=== PATIENT | male | born 2000 | race Caucasian/White ===

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

== ENCOUNTER 2022-11-12 19:17 | Emergency (ER) | payer OTHER ==
[~2022-11-12] VITALS: Ht 182.8 cm; Wt 115.7 kg
[2022-11-12 19:43] VITALS: BP 158/81
[2022-11-12] MEDS ORDERED: CEPHALEXIN500 M1 PO (19:57)
[2022-11-12] MEDS ORDERED: SEPTDS PO (19:57)
== END 2022-11-12 20:16 | disposition home or self-care (01) ==
LOC: ED 19:17
DX: L03.115 Cellulitis of right lower limb (principal); Z98.890 Other specified postprocedural states

== ENCOUNTER 2023-05-18 | Emergency (ER) | payer OTHER ==
[~2023-05-18] VITALS: Ht 177.8 cm; Wt 115.7 kg
[~2023-05-18] MED LIST changes: +SEPTDS PO
[2023-05-18 00:08] VITALS: BP 128/56
== END 2023-05-18 00:32 | disposition home or self-care (01) ==
LOC: ED
DX: S00.12XA Contusion of left eyelid and periocular area, initial encounter (principal); F90.9 Attention-deficit hyperactivity disorder, unspecified type; Z98.890 Other specified postprocedural states; W50.0XXA Accidental hit or strike by another person, initial encounter; Y93.89 Activity, other specified; Y92.009 Unspecified place in unspecified non-institutional (private) residence as the place of occurrence of the external cause; Y99.8 Other external cause status

== ENCOUNTER → 2023-06-06 | Outpatient (CLI) | payer OTHER | END | disposition home or self-care (01) | LOC: LAB 09:01 | PROVIDERS: ATTEND Family Medicine | DX: R79.89 Other specified abnormal findings of blood chemistry (principal); R53.83 Other fatigue ==

== ENCOUNTER 2023-08-22 20:55 | Emergency (ER) | payer OTHER ==
[~2023-08-22] VITALS: Ht 175.2 cm; Wt 111.1 kg
[2023-08-22 21:04] VITALS: BP 138/72
[2023-08-22 21:35] LABS: BASO % 0.3 % (0.0-1.0); EOS # 0.4 10*3/uL (0.0-0.4); EOS % 3.5 % (1.0-4.0); HEMATOCRIT 48.5 % (42.0-52.0); LYMPH # 4.7 10*3/uL (1.3-4.4); LYMPH % 44.7 % (27.0-41.0); MEAN CELL VOLUME 89.3 fl (80.0-94.0); MEAN CORPUSCULAR HGB 29.3 pg (27.0-31.0); MEAN CORPUSCULAR HGB CONC 32.8 g/dl (33.0-37.0); MEAN PLATELET VOLUME 10.1 fl (9.6-12.3); MONO # 0.6 10*3/uL (0.1-1.0); MONO % 5.2 % (3.0-9.0); NEUT # 4.9 10*3/uL (2.3-7.9); PLATELET COUNT AUTOMATED 248 10*3/uL (130-400); RED BLOOD COUNT 5.43 10*6/uL (4.50-5.90); RED CELL DISTRI WIDTH 12.6 % (0-14.5); WHITE BLOOD COUNT 10.6 10*3/uL (4.8-10.8)
[2023-08-22 21:55] LABS: BILIRUBIN Negative (Negative); BLOOD Negative (Negative); CLARITY Clear (Clear); COLOR Yellow (Yellow); GLUCOSE Negative (Negative); KETONE Negative (Negative); LEUKO ESTERASE Negative (Negative); NITRITE Negative (Negative); PH 6.5 (4.5-8.0)
[2023-08-22 22:06] LABS: ALKALINE PHOSPHATASE 78 U/L (46-116); BUN 10 mg/dl (9-23); CHLORIDE 108 mmol/L (98-107); POTASSIUM 3.9 mmol/L (3.4-5.1); SGPT/ALT 42 U/L (5-49); TOTAL PROTEIN 7.1 gm/dL (6.0-8.0)
[2023-08-22 22:31] LABS: WBC 0-2 wbc/hpf (0-5)
== END 2023-08-23 00:12 | disposition home or self-care (01) ==
LOC: ED 20:55
PROVIDERS: Nurse Practitioner Family
DX: S30.1XXA Contusion of abdominal wall, initial encounter (principal); Z98.890 Other specified postprocedural states; X58.XXXA Exposure to other specified factors, initial encounter; Y93.89 Activity, other specified; Y92.89 Other specified places as the place of occurrence of the external cause; Y99.8 Other external cause status

== ENCOUNTER 2024-02-01 22:11 | Emergency (ER) | payer SELFPAY ==
[~2024-02-01] VITALS: Ht 172.7 cm; Wt 125.2 kg
[2024-02-01 22:13] VITALS: BP 159/101
[2024-02-01] MEDS ORDERED: Tdap Vaccine 0.5 ML SYR (Adult Vaccine) IM ONE (22:45)
[2024-02-01] MEDS ORDERED: Acetaminophen/Hydrocodone 5 MG/325 MG TABLET PO ONE (22:50)
== END 2024-02-02 02:21 | disposition short-term general hospital (02) ==
LOC: ED 22:11
DX: T15.11XA Foreign body in conjunctival sac, right eye, initial encounter (principal); F90.9 Attention-deficit hyperactivity disorder, unspecified type; Z98.890 Other specified postprocedural states; W44.8XXA Other foreign body entering into or through a natural orifice, initial encounter; Y93.89 Activity, other specified; Y92.89 Other specified places as the place of occurrence of the external cause; Y99.8 Other external cause status

== ENCOUNTER 2024-07-08 13:55 | Emergency (ER) | payer SELFPAY ==
[~2024-07-08] VITALS: Ht 190.5 cm; Wt 133.8 kg
[2024-07-08 14:24] VITALS: BP 159/74
[2024-07-08] MEDS ORDERED: Lidocaine Hydrochloride 2 ML AMP SC ONE (14:45)
== END 2024-07-08 15:19 | disposition home or self-care (01) ==
LOC: ED 13:55
DX: S91.111A Laceration without foreign body of right great toe without damage to nail, initial encounter (principal); W26.8XXA Contact with other sharp object(s), not elsewhere classified, initial encounter; Y93.89 Activity, other specified; Y92.89 Other specified places as the place of occurrence of the external cause; Y99.8 Other external cause status

== ENCOUNTER 2024-07-14 13:26 | Emergency (ER) | payer SELFPAY ==
[2024-07-14 14:01] VITALS: BP 134/78
== END 2024-07-14 14:17 | disposition home or self-care (01) ==
LOC: ED 13:26
DX: S91.111D Laceration without foreign body of right great toe without damage to nail, subsequent encounter (principal); F90.9 Attention-deficit hyperactivity disorder, unspecified type; Z98.890 Other specified postprocedural states; X58.XXXD Exposure to other specified factors, subsequent encounter

== ENCOUNTER 2024-10-17 08:32 | Emergency (ER) | payer OTHER ==
[~2024-10-17] VITALS: Ht 170.1 cm; Wt 131.5 kg
[2024-10-17 08:47] VITALS: BP 156/77
== END 2024-10-17 09:38 | disposition home or self-care (01) ==
LOC: ED 08:32
DX: R10.9 Unspecified abdominal pain (principal); R19.7 Diarrhea, unspecified; F17.200 Nicotine dependence, unspecified, uncomplicated

== ENCOUNTER 2024-10-21 08:52 | Emergency (ER) | payer OTHER ==
[~2024-10-21] VITALS: Ht 170.1 cm; Wt 133.8 kg
[2024-10-21 08:59] VITALS: BP 163/93
== END 2024-10-21 10:21 | disposition home or self-care (01) ==
LOC: ED 08:52
DX: S92.351A Displaced fracture of fifth metatarsal bone, right foot, initial encounter for closed fracture (principal); F90.9 Attention-deficit hyperactivity disorder, unspecified type; F17.200 Nicotine dependence, unspecified, uncomplicated; Z98.890 Other specified postprocedural states; X58.XXXA Exposure to other specified factors, initial encounter; Y93.89 Activity, other specified; Y92.89 Other specified places as the place of occurrence of the external cause; Y99.8 Other external cause status

== ENCOUNTER 2025-03-11 21:13 | Emergency (ER) | payer OTHER ==
[~2025-03-11] VITALS: Ht 170.2 cm; Wt 117.0 kg
[2025-03-11 21:24] VITALS: BP 132/78
[2025-03-11] MEDS ORDERED: SILVADENE20 GM T (21:49)
== END 2025-03-11 22:12 | disposition home or self-care (01) ==
LOC: ED 21:13
DX: T25.222A Burn of second degree of left foot, initial encounter (principal); X58.XXXA Exposure to other specified factors, initial encounter; Y93.89 Activity, other specified; Y92.89 Other specified places as the place of occurrence of the external cause; Y99.8 Other external cause status

== ENCOUNTER 2025-04-12 19:20 | Emergency (ER) | payer OTHER ==
[~2025-04-12 19:20] MED LIST changes: +SILVADENE20 GM T
[2025-04-12 19:21] VITALS: BP 137/88
[2025-04-12 19:45] LABS: BASO # 0.0 10*3/uL (0.0-0.1); BASO % 0.5 % (0.0-1.0); EOS # 0.1 10*3/uL (0.0-0.4); EOS % 1.7 % (1.0-4.0); MEAN CELL VOLUME 84.9 fl (80.0-94.0); MEAN CORPUSCULAR HGB 29.4 pg (27.0-31.0); MEAN PLATELET VOLUME 10.1 fl (9.6-12.3); MONO # 0.6 10*3/uL (0.1-1.0); MONO % 6.7 % (3.0-9.0); NEUT # 4.6 10*3/uL (2.3-7.9); NEUT % 55.9 % (47.0-73.0); NUCLEATED RED BLOOD CELL 0.0 % (0.0-0.0); NUCLEATED RED BLOOD CELL 0.0 10*3/uL (0.0-0.0); PLATELET COUNT AUTOMATED 235 10*3/uL (130-400); RED CELL DISTRI WIDTH 11.9 % (0-14.5)
[2025-04-12 20:04] LABS: BUN 8 mg/dl (9-23)
[2025-04-12] MEDS ORDERED: Ondansetron Hydrochloride 4 MG TAB SL ONE (20:05)
[2025-04-12] MEDS ORDERED: Ondansetron 4 MG 2 TAB ED PACK PO SCH (20:20)
[2025-04-12] MEDS ORDERED: MG-AL HYDROXIDE/SIMETICONE 30 ML UDC PO ONE (20:25)
== END 2025-04-12 20:40 | disposition home or self-care (01) ==
LOC: ED 19:20
PROVIDERS: Nurse Practitioner Family
DX: A08.4 Viral intestinal infection, unspecified (principal)